=== PATIENT | male | born 1975 | race Two or more races ===

== ENCOUNTER 2023-11-06 01:32 | Emergency (ER) | payer MEDICAID, OTHER ==
[~2023-11-06] VITALS: Ht 165.1 cm; Wt 72.6 kg
[2023-11-06 02:23] VITALS: BP 134/60; TEMP 98.5; O2SAT 98
== END 2023-11-06 02:28 | disposition home or self-care (01) ==
LOC: ER 01:34
DX: R06.02 Shortness of breath (principal)
CPT/HCPCS: 71045-TC